=== PATIENT | female | born 1975 | race Caucasian/White ===

== ENCOUNTER 2023-01-29 10:45 | Emergency (ER) | payer OTHER, SELFPAY ==
[2023-01-29 10:59] VITALS: BP 104/79; PULSE 100; RESP 20; TEMP 37.1; O2SAT 94
[2023-01-29 11:00] VITALS: BP 104/79; PULSE 100; RESP 20; TEMP 37.1; O2SAT 94
--- NOTE | 2023-01-29 11:12 | ED.URI ---
HPI - URI/Sore Throat General Chief Complaint: Upper Respiratory Infection Stated Complaint: Sore Throat Source: patient and RN notes reviewed History of Present Illness HPI Narrative: 47 yo F presents to urgent care with complaints of sore throat, low grade fevers, and diarrhea since Monday. Pt denies any vomiting, chest pain, SOB, ear pain, abdominal pain, dysuria, or congestion. 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 Related Data Home Medications Medication Instructions Recorded Confirmed No Home Medications 01/29/23 01/29/23 Allergies Allergy/AdvReac Type Severity Reaction Status Date / Time No Known Allergies Allergy Verified 01/29/23 10:59 Review of Systems Review of Systems: Pertinent positives and pertinent negatives per HPI. PMFSH Comments At the time of my signature, I reviewed and agree with the nursing past medical, surgical, social, and family history. There is no relevant family history pertinent to the patient complaint. Exam Narrative: GENERAL: This is a well-nourished, well-developed patient, in no apparent distress. HEAD: normocephalic, atraumatic. EYES: Sclera clear/white. Vision is grossly intact. EARS: External ears normal, auditory canals clear and without drainage, TMs normal without perforation. Hearing grossly intact. NOSE: External nose normal with no obvious nasal discharge, nares without redness, no rhinorrhea. THROAT: Mucous membranes moist, posterior pharynx erythemic NECK: Neck supple, non-tender without lymphadenopathy, masses or thyromegaly. CARDIOVASCULAR: Regular rate and rhythm without murmurs, gallops, or rubs. RESPIRATORY: Clear to auscultation. Breath sounds equal bilaterally. No wheezes, rales, or rhonchi. SKIN: warm, intact with no suspicious lesions or rash, good texture and turgor. NEURO: awake, alert, and oriented to person, place and time. There were no obvious focal neurologic abnormalities. Course Course Level of Care: Express Care Visit Vital Signs Vital signs: Vital Signs Temperature 98.7 F 01/29/23 10:59 Pulse Rate 100 01/29/23 10:59 Respiratory Rate 20 01/29/23 10:59 Blood Pressure 104/79 01/29/23 10:59 Pulse Oximetry 94 01/29/23 10:59 Oxygen Delivery Room Air 01/29/23 10:59 Temperature 98.7 F 01/29/23 11:00 Pulse Rate 100 01/29/23 11:00 Respiratory Rate 20 01/29/23 11:00 Blood Pressure 104/79 01/29/23 11:00 Pulse Oximetry 94 01/29/23 11:00 Oxygen Delivery Room Air 01/29/23 11:00 Reviewed MDM - URI/Sore Throat MDM Narrative Medical decision making narrative: Viral illness may last between 7-21 days; antibiotics do not cure viral illness and are NOT recommended at this time. Also, recommend symptomatic treatment includes: rest, fluids, and increase humidity of the air at home. Recommend Acetaminophen as directed on the bottle to reduce fever, pain, headache. Please schedule a follow-up visit with your personal physician for further evaluation and treatment within 3-5days. If your symptoms persist, change or worsen significantly before you can contact your personal physician then please, without delay, go to the emergency department for further evaluation. Differential Diagnosis Differential diagnosis: Likely upper respiratory infection, sinusitis, viral infection and pharyngitis Lab Data Attestation: I reviewed the patient's lab results. Labs: Strep Screen Presumptive Negative *(Reference Range: Negative)* Critical Care Time Critical Care Time Critical Care Time: No Discharge Plan Discharge Clinical Impression: Viral infection Patient Disposition: Home, Self-Care Condition: Stable Instructions: Viral Syndrome (ED) Additional Instructions: Viral illness may last between 7-21 days; antibiotics do not cure viral illness and are NOT recommended at this time. Also, recommend symptomati
== END 2023-01-29 11:21 | disposition home or self-care (01) ==
PROVIDERS: Emergency Provider Nurse Practitioner Family
DX: B34.9 Viral infection, unspecified (principal)
CPT/HCPCS: 87081; 87880; 99203; G0463

== ENCOUNTER 2023-03-06 12:45 | Emergency (ER) | payer OTHER, SELFPAY ==
[2023-03-06 12:48] VITALS: BP 125/85; PULSE 114; RESP 20; TEMP 37.7; O2SAT 95
--- NOTE | 2023-03-06 13:46 | ED.URI ---
HPI - URI/Sore Throat General Chief Complaint: Upper Respiratory Infection Stated Complaint: chills/fever Time Seen by Provider: 03/06/23 13:46 Source: patient, RN notes reviewed and old records reviewed Mode of arrival: ambulatory Limitations: no limitations History of Present Illness HPI Narrative: 47 year old female who presents to [facility] care with complaints of diarrhea starting during the night and she was tired last night and she has had chills, body aches,some nausea without vomiting, cough and fevers up to 101.5F today.Patient reports that she took some Tylenol PM for her symptoms. Patient denies any shortness of breath no tachypnea noted or retractions.Patient reports that she had COVID in February 2023. MD elicited complaint: fever, cough and other (nausea and diarrhea, chills, body aches) Onset (ago): day(s) (1) Pain scale (0-10): 7 Treatments prior to arrival: other (Tylenol PM) Related Data Allergies Allergy/AdvReac Type Severity Reaction Status Date / Time No Known Allergies Allergy Verified 03/06/23 13:17 Review of Systems Review of Systems: CONSTITUTIONAL: Reports malaise, chills, sweats, or fever. EYES: Denies visual changes, redness, or discharge. ENT: Reports rhinorrhea, congestion, no sinus pain, no otalgia and no sore throat. CARDIOVASCULAR: Denies chest pain, palpitations, or edema. RESPIRATORY: Reports cough.? Denies dyspnea. GASTROINTESTINAL: Denies abdominal pain, positive for nausea, no vomiting, positive for diarrhea SKIN: Denies rash or itching. MUSCULOSKELETAL: Reports myalgia. NEUROLOGIC: Denies headache. All systems reviewed & are unremarkable except as noted in HPI and below PMFSH Social History Social History (Updated 03/08/23 @ 10:44 by Sharon Howard NP) Smoking status: Current every day smoker Tobacco type: cigarettes Alcohol intake: current Alcohol use details: social Substance use type: does not use Living arrangements: with family Gender identity (if verbalized by the patient): Female Comments At time of signature, agree with nursing past medical, surgical, social and family history. There is no relevant family history pertinent to the presenting complaint Exam Narrative: GENERAL: Ill-appearing, well-nourished, and in no acute distress. HEAD: Normocephalic EYES: PERRLA, conjunctivae clear ENT: Nares clear, turbinates edematous and erythematous, clear discharge. Mucous membranes moist. TM pearly montaño with dull light reflex bilaterally; no tragal tenderness. Oropharynx erythematous without lesions. Tonsils not enlarged and without exudate, no drooling, no hoarseness, no trismus, uvula midline.post nasal discharge NECK: Supple. No lymphadenopathy CHEST: Clear to auscultation, breath sounds equal. No wheezing, rhonchi, rales, or stridor. No respiratory distress, speaks in full sentences.cough noted SAO2 95% on room air HEART: Regular rate and rhythm. No murmur heard. SKIN: Warm, dry, no rash. NEURO: Alert and oriented x3. PSYCH: Normal mood and affect Course Course Emergency Course: Patient is aware of diagnosis, understands and agrees to treatment plan.? Anticipatory guidance given.? Patient agrees to follow-up as directed and is aware of reasons to seek care at the emergency department. Portions of this record may have been created with voice recognition software Level of Care: Express Care Visit Vital Signs Vital signs: Vital Signs Temperature 37.7 C H 03/06/23 12:48 Pulse Rate 114 H 03/06/23 12:48 Respiratory Rate 03/06/23 12:48 Blood Pressure 125/85 03/06/23 12:48 Pulse Oximetry 03/06/23 12:48 Oxygen Delivery Room Air 03/06/23 12:48 Temperature 37.7 C H 03/06/23 12:48 Pulse Rate 114 H 03/06/23 12:48 Respiratory Rate 03/06/23 12:48 Blood Pressure 125/85 03/06/23 12:48 Pulse Oximetry 03/06/23 12:48 Oxygen Delivery Room Air 03/06/23 12:48 reviewed MDM - U
== END 2023-03-06 14:05 | disposition home or self-care (01) ==
PROVIDERS: Emergency Provider Registered Nurse
DX: J10.1 Influenza due to other identified influenza virus with other respiratory manifestations (principal); F17.210 Nicotine dependence, cigarettes, uncomplicated; Z86.16 Personal history of COVID-19
CPT/HCPCS: 87804; 99213; G0463

== ENCOUNTER 2024-01-05 15:54 | Emergency (ER) | payer OTHER, SELFPAY ==
[2024-01-05 15:58] VITALS: BP 113/85; PULSE 91; RESP 18; TEMP 37.2; O2SAT 97
--- NOTE | 2024-01-05 16:00 | ED.URI ---
HPI - URI/Sore Throat General Chief Complaint: Upper Respiratory Infection Stated Complaint: Runny Nose/Congestion Time Seen by Provider: 01/05/24 16:23 Source: patient and RN notes reviewed Mode of arrival: ambulatory Limitations: no limitations History of Present Illness HPI Narrative: 48-year-old female presents with concern for sore throat, runny nose, stuffy nose, cough, pain behind her ear. She reports symptoms started on Monday with diarrhea and then upper respiratory is symptoms started later. She denies fever, body aches, chills, sweats MD elicited complaint: sore throat and nasal congestion Related Data Allergies Allergy/AdvReac Type Severity Reaction Status Date / Time No Known Allergies Allergy Verified 03/06/23 13:17 Review of Systems Review of Systems: CONSTITUTIONAL: Denies malaise, chills, sweats, or fever. EYES: Denies visual changes, redness, or discharge. ENT: Reports rhinorrhea, congestion, otalgia and sore throat. CARDIOVASCULAR: Denies chest pain, palpitations, or edema. RESPIRATORY: Reports cough. Denies dyspnea. GASTROINTESTINAL: Denies abdominal pain, nausea, vomiting, diarrhea SKIN: Denies rash or itching. MUSCULOSKELETAL: Denies myalgia. NEUROLOGIC: Denies headache. All systems reviewed & are unremarkable except as noted in HPI and below PMFSH Social History Social History (Updated 03/08/23 @ 10:44 by Sharon Howard NP) Smoking status: Current every day smoker Tobacco type: cigarettes Alcohol intake: current Alcohol use details: social Substance use type: does not use Living arrangements: with family Gender identity (if verbalized by the patient): Female Comments At time of signature, agree with nursing past medical, surgical, social and family history. There is no relevant family history pertinent to the presenting complaint Exam Narrative: GENERAL: Well-appearing, well-nourished, and in no acute distress. HEAD: Normocephalic EYES: PERRLA, conjunctivae clear ENT: Nares clear, clear discharge. Mucous membranes moist. TM pearly montaño with dull light reflex bilaterally; no tragal tenderness. Oropharynx erythematous without lesions. Tonsils not enlarged and without exudate, no drooling, no hoarseness, no trismus, uvula midline. NECK: Supple. No lymphadenopathy CHEST: Clear to auscultation, breath sounds equal. No wheezing, rhonchi, rales, or stridor. No respiratory distress, speaks in full sentences. HEART: Regular rate and rhythm. No murmur heard. SKIN: Warm, dry, no rash. NEURO: Alert and oriented x3. PSYCH: Normal mood and affect Course Course Emergency Course: Patient is aware of diagnosis, understands and agrees to treatment plan. Anticipatory guidance given. Patient agrees to follow-up as directed and is aware of reasons to seek care at the emergency department. Portions of this record may have been created with voice recognition software Level of Care: Express Care Visit Vital Signs Vital signs: Reviewed. MDM - URI/Sore Throat MDM Narrative Medical decision making narrative: Differential diagnosis considered: Gifford virus, strep pharyngitis, allergic rhinitis, upper respiratory tract infection, sinusitis, rhinosinusitis, nasopharyngitis. viral pharyngitis, otitis media, otitis externa, pneumonia, bronchitis, viral cough syndrome, viral syndrome, and influenza. Exam findings show no acute concerns or changes; patient is non-toxic appearing and is in no distress. Patient is appropriate for outpatient treatment and follow-up. Lab Data Attestation: I reviewed the patient's lab results. Critical Care Time Critical Care Time Critical Care Time: No Discharge Plan Discharge Clinical Impression: Upper respiratory infection Patient Disposition: Home, Self-Care Condition: Stable Instructions: Upper Respiratory Infection (ED) Additional Instructions: Your rapid strep swab was negative today at [facility]. A throat culture will be sent to the laboratory for further testing. If the test is positive, you will receive a phone call within 48 hours and an appropriate antibiotic will be initiated at that time. Your symptoms are likely due to a viral illness, which is not treated with antibiotics. Viral symptoms can be present for up to a few weeks. -Alternate Tylenol and Motrin per package directions for fever or pain. -Antihistamine medication such as Benadryl at night and Zyrtec during the day can help improve symptoms. -Eat and drink things that are easy to swallow, like tea or soup, or popsicles to suck on. -Oral rinses such as: Salt water gargles and/or may use topical anesthetic (eg. Chloraseptic spray) or lozenges to relieve dryness or throat pain). -Frequent hand washing or hand wind plant manager is one of the best ways to prevent spread of infection. -Follow up with primary care provider in 2-3 days if condition is not improving; or seek ER visit if you have trouble breathing, cannot drink enough fluids, have muffled voice, difficulty opening your mouth, or severe swelling. Prescriptions: New pseudoephedrine HCl [12 Hour Decongestant] 120 mg tablet extended release 120 mg PO Q12H PRN (Reason: nasal congestion) Qty: 20 0RF fluticasone propionate [Flonase Allergy Relief] 50 mcg/actuation spray,suspension 2 spray NASAL DAILY 14 Days Qty: 15.8 0RF Rx Instructions: administer into each nostril Follow-up/Referrals: Mirlande Jacome, RN [Primary Care Provider] - Stand Alone Forms: Work/School Release IP Time of Disposition: 16:37
[2024-01-05 16:02] VITALS: BP 113/85; PULSE 91; RESP 18; TEMP 37.2; O2SAT 97
[2024-01-05 16:32] LABS: EDSTREPNEGPOS1 Negative (Negative)
== END 2024-01-05 16:43 | disposition home or self-care (01) ==
PROVIDERS: Emergency Provider Nurse Practitioner
DX: J06.9 Acute upper respiratory infection, unspecified (principal); F17.210 Nicotine dependence, cigarettes, uncomplicated
CPT/HCPCS: 87081; 87880; 99213; G0463

== ENCOUNTER 2024-07-23 12:24 | Emergency (ER) | payer OTHER, SELFPAY ==
--- OUTSIDE RECORDS SUMMARY | 2024-07-23 12:26 | XMS_ITS ---
Author Organization [facility] Address [address] [place] [address] Phone Care Team Providers Care Md Allergy Immunology Name Role Phone Unavailable Primary Care Provider [facility] Status:Enrolled (Active) Start date:04/03/2024 Enrollment date:04/03/2024 Related social drivers of health:Intimate Partner Violence, Social Connections, Alcohol Use, Tobacco Use, Financial Resource Strain,Stress, Physical Activity, Food Insecurity, Transportation Needs, Housing Stability, Utilities Continued Care and Services Coordination
--- OUTSIDE RECORDS SUMMARY | 2024-07-23 12:26 | XMS_ITS | Clinical Summary ---
Author Organization [facility] Address [address] [place] [address] Phone Care Team Providers Care Flagstone Layer Name Role Phone Unavailable Primary Care Provider Unavailabl e Allergies No known active allergies Medications valACYclovir (VALTREX) 500 MG TabletIndicatio ns:HSV-2 (herpes simplex virus 2) infection Take 1 Tablet by mouth daily. 90 Tablet 3 1 Active Additional Information Patient not taking.Reported on 03/08/2024 Active Problems No known active problems Immunizations Immunization Administration Dates Next Due Pneumococcal Vaccine Adult - 23 Valent 1 Pneumococcal conjugate PCV20 , polysaccharide GBL610 conjugate, adjuvant, PF 01/12/2022 TDAP Vaccine 12/12/2021 Family History Medical History Relation Name Comments No Known Problems Daughter 1 ADD / ADHD Daughter 2 Diabetes Father Heart Attack Father Heart Disease Father Heart Surgery Father Colon Cancer Maternal Grandmother Hypertension Mother No Known Problems Son Relation Name Status Comments Daughter 1 Alive Daughter 2 Alive Father Alive Maternal Grandmother Mother Alive Son Alive Social History Tobacco Use Types Packs/Day Years Used Date Smoking Tobacco: Every Day Cigarettes 0.5 32.4 Started: 03/06/1992 Smokeless Tobacco: Never Tobacco Cessation:Ready to Q uit: Not Asked; Counseling Given: Not Answered Alcohol Use Standard Drinks/Week Comments Yes 0 (1 standard drink = 0.6 oz pur e alcohol) Occasionally PHQ-2 Answer Date Recorded Total Score - Questions 1-9 0 /0 09/2020 Education Answer Date Recorded What is the highest level of school you have completed or the highest degree you have received? 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 Not on file Not on file Last Filed Vital Signs Vital Sign Reading Time Taken Comments Blood Pressure 102/60 03/08/2024 12:00 PM LOADER ENGINEER Pulse 91 03/08/2024 12:00 PM LOADER ENGINEER Temperature 37.2 C (98.9 F) 03/08/2024 12:00 PM LOADER ENGINEER Respiratory Rate 16 03/08/2024 12:00 PM LOADER ENGINEER Oxygen Saturation 96% 03/08/2024 12:00 PM LOADER ENGINEER Inhaled Oxygen Concentration - - Weight 64.9 kg (143 lb) 05/11/2022 9:01 AM LOADER ENGINEER Height 157.5 cm (5' 2 ) 05/11/2022 9:01 AM LOADER ENGINEER Body Mass Index 26.16 05/11/2022 9:01 AM LOADER ENGINEER Plan of Treatment Health Maintenance Due Date Last Done Comments Hepatitis C Virus (HCV) Screening 1977 Hepatitis B Immunization (1 of 3 - 19+ 3-dose series) 1996 Colonoscopy 2022 Colorectal Cancer Screening 2022 Mammogram 01/17/2023 01/17/2022, 08/24/2020 Influenza Immunization (#1) 2023 SARS-COV-2 Immunization ( season) 2023 10/16/2020 Pap Smear 01/28/2025 01/28/2022, 12/03/2018 Cervical Cancer Screening (CCS) 03/02/2027 HPV/Cotest 03/02/2027 03/02/2022 Td Immunization Every 10 Yea rs (Adults With 1 Tdap) 12/13/2031 12/12/2021 Respiratory Syncytial Virus (RSV) Immunization (Adult) (1 - 1-dose 75+ series) 2052 Pneumococcal Immunization Combined Completed 01/12/2022, 08/10/2020 Discussion re Starting/Frequency of Mammograms Completed 01/17/2022, 08/24/2020 Meningococcal Immunization (ACWY) Aged Out No longer eligible b ased on patient's age to complete this topic Rotavirus Immunization Aged Out No lo nger eligible based on patient's age to complete this topic Procedures Procedure Name Priority Date/Time Associated Diagnosis Comments HUMAN PAPILLOMA VIRUS (HPV) Routine 03/02/2022 8:33 AM LOADER ENGINEER Encounter for well woman exam with routine gynecological exam PATHOLOGY CYTOLOGY BINDER SORTER Routine 01/28/2022 5:08 PM LOADER ENGINEER Encounter for well woman exam with routine gynecological exam KATERIN SCREENING BILATERAL DIGITAL W CAD W TIGRE Routine 01/17/2022 3:30 PM LOADER ENGINEER Encounter for screening for malignant neoplasm of breast, unspecified screening modality from Last 3 Months or Most Recently Relevant to Health Maintenance Results * (ABNORMAL) HUMAN PAPILLOMA VIRUS (HPV) (03/02/2022 8:33 AM LOADER ENGINEER) HPV OTHER HIGH RISK TYPES, PCR POSITIVE(A) NEGATIVE 03/04/2022 2:46 PM LOADER ENGINEER [facility] Comment: Positive for one or more of the following Other High HPV types: 31, 33, 35, 39, 45, 51, 52, 56, 58, 59, 66, and 68. False-positive results have been reported with molecular assays. If these positive results are discordant with clinical/cytohistologic findings, repeat testing may be considered after an appropriate interval. HPV TYPE 16 NEGATIVE NEGATIVE 03/04/2022 2:46 PM LOADER ENGINEER [facility] Comment: A negative high-risk HPV result does not exclude the possibility of future cytologic HSIL or underlying CIN2-3 or cancer. The presence of PCR inhibitors may cause false negative or invalid results. If concentrations of whole blood in the sample exceed 1.5% (dark red or brown coloration) in PreservCyt solution, there is a likelihood of obtaining a false-negative result. HPV TYPE 18 NEGATIVE NEGATIVE 03/04/2022 2:46 PM LOADER ENGINEER [facility] Comment: A negative high-risk HPV result does not exclude the possibility of future cytologic HSIL or underlying CIN2-3 or cancer. The presence of PCR inhibitors may cause false negative or invalid results. If concentrations of whole blood in the sample exceed 1.5% (dark red or brown coloration) in PreservCyt solution, there is a likelihood of obtaining a false-negative result. HPV ORDER BE USED FOR SCREENING OR DIAGNOSTIC SCREENING 03/04/2022 2:46 PM LOADER ENGINEER [facility] Other Non-Phlebotomy Collection / Unknown 03/02/2022 8:33 AM LOADER ENGINEER 03/02/2022 8:33 AM LOADER ENGINEER Narrative [facility] - 03/04/2022 2:46 PM LOADER ENGINEER Performed by Real-Time Polymerase Chain Reaction (PCR) on the Jerome Judd 4800. This assay has been validated for use with post-aliquot samples from the [employer] T5000 processor. us Mirlande Jacome APRN, CNP LAB SEND OUTS Final Re sult [facility] [address] [id number], [place] * PATHOLOGY CYTOLOGY BINDER SORTER (01/28/2022 5:08 PM LOADER ENGINEER) SPECIMEN ADEQUACY Satisfactory for evaluation. Endocervical/trans formation zone component is present. 02/08/2022 10:44 AM LOADER ENGINEER [facility] GENERAL CATEGORY EPITHELIAL CELL ABNORMALITY. 02/08/2022 10:44 AM [facility] DESCRIPTIVE DIAGNOSIS ASCUS: Atypical squamous cells of undetermined significance. 02/08/2022 10:44 AM [facility] at [address]44 LOADER ENGINEER OTHER FINDINGS Predominance of coccobacilli present consistent with shift in vaginal jackie. 02/08/2022 10:44 AM LOADER ENGINEER [facility] RECOMMENDATION 02/08/2022 10:44 AM [facility] Comment:Clinical correlation and follow-up studies if warranted advised. HPV Reflex if ASCUS? Yes 02/08/2022 10:44 AM [facility] Automated Examination This sample was not evaluated by the automated imaging and review system (M[employer]etrixprep Imaging System, [employer], [place], [place]) due to technical and/or biologic factor(s). The case was screened, reviewed, and finalized by a data entry email processor and/or pathologist. 02/08/2022 10:44 AM LOADER ENGINEER [facility] Disclaimer The PAP smear is a screening test designed to detect cancerous or precancerous cells of the uterine cervix. It is one of the best means available for detection of cervical cancer but still carries an inherent false-negative rate. The consequences of a false-negative PAP result can be minimized by adhering to current screening guidelines. The following are general guidelines recommended by the ACS, ASCP, ASCCP, and ACOG: PAP testing is recommended every three years for women 21-29, Co-Testing , a PAP test in conjunction with an HPV (Human Papillomavirus) test for women ages 30-65, and no PAP or HPV testing for women under the age of 21 or older than 65 unless clinically indicated. 02/08/2022 10:44 AM LOADER ENGINEER [facility] Other CERVIX UTERI STRUCTURE / Unknown Non-Phlebotomy Collection / Unknown 01/28/2022 5:08 PM LOADER ENGINEER 01/28/2022 5:08 PM LOADER ENGINEER us Mirlande Jacome APRN, JUANA PATHOLOGY/CYTOLOGY ORDER MARGARITO Final Result [facility] [address] [place] [address], * KATERIN SCREENING BILATERAL DIGITAL W CAD W TIGRE (01/17/2022 3:30 PM LOADER ENGINEER) Anatomical Region Laterality Modality breast Bilateral Mammography 01/17/2022 3:11 PM LOADER ENGINEER Narrative 01/18/2022 8:47 AM LOADER ENGINEER - KATERIN SCREENING BILATERAL DIGITAL W CAD W TIGRE BILATERAL DIGITAL SCREENING MAMMOGRAM 3D/2D WITH CAD WITH MEDIOLATERAL OBLIQUE CRANIOCAUDAL: 01/17/2022 The study was acquired using digital technology and interpreted from soft copy. Current study was also evaluated with ICAD version 7.2. 2D digital mammographic views, as well as 3D digital tomosynthesis were performed in the CC and MLO projections. CLINICAL: Routine screening. Patient has no complaints. No personal history of cancer. No family history of breast cancer. *see notes*. COMPARISONS: Comparison is made to exam dated: 08/24/2020 [facility]. BREAST TISSUE:The tissue of both breasts is extremely dense, which lowers the sensitivity of mammography. FINDINGS: There are benign calcifications in both breasts. No significant masses, calcifications, or other findings are seen in either breast. There has been no significant interval change. IMPRESSION: BI-RAD 2 BENIGN There is no mammographic evidence of malignancy. A 1 year screening mammogram is recommended. A letter will be sent to the patient with these results. The patient will be entered into a reminder system with a target due date of 1 year for her next screening exam. Electronically signed by: Janet skinner/penrad:01/17/2022 18:28:56 Radiologist Physician(s): RT Jacob(R)(M), [facility] letter sent: Normal Exam Reading location: [facility] BI-RADS: 2 Benign Procedure Note Janet Martinez MD - 01/18/2022 - KATERIN SCREENING BILATERAL DIGITAL W CAD W TIGRE BILATERAL DIGITAL SCREENING MAMMOGRAM 3D/2D WITH CAD WITH MEDIOLATERAL OBLIQUE CRANIOCAUDAL: 01/17/2022 The study was acquired using digital technology and interpreted from soft copy. Current study was also evaluated with ICAD version 7.2. 2D digital mammographic views, as well as 3D digital tomosynthesis were performed in the CC and MLO projections. CLINICAL: Routine screening. Patient has no complaints. No personal history of cancer. No family history of breast cancer. *see notes*. COMPARISONS: Comparison is made to exam dated: 08/24/2020 [facility]. BREAST TISSUE:The tissue of both breasts is extremely dense, which lowers the sensitivity of mammography. FINDINGS: There are benign calcifications in both breasts. No significant masses, calcifications, or other findings are seen in either breast. There has been no significant interval change. IMPRESSION: BI-RAD 2 BENIGN There is no mammographic evidence of malignancy. A 1 year screening mammogram is recommended. A letter will be sent to the patient with these results. The patient will be entered into a reminder system with a target due date of 1 year for her next screening exam. Electronically signed by: Janet skinner/penrad:01/17/2022 18:28:56 Radiologist Physician(s): RT Jacob(R)(M), [facility] letter sent: Normal Exam Reading location: [facility] BI-RADS: 2 Benign us Mirlande Jacome ANIMATION CAMERA OPERATOR, EXPERIMENTAL AIRCRAFT MECHANIC IMG MAMMO ORDERABLES Fin al Result from Last 3 Months or Most Recently Relevant to Health Maintenance Insurance MEDICAID [place]
--- OUTSIDE RECORDS SUMMARY | 2024-07-23 12:26 | XMS_ITS | Encounter Summary ---
Author Organization [facility] Address [address] [place] [address] Care Team Providers Care Child Development Director Name Role Phone Unavailable Primary Care Provider Unavailabl e Encounter Details Date Type Department Care Team (Late st Contact Info) Description 09/18/2019 Lab Requisition [facility] [address] [place] [address] Regis Esteves MD Social History Tobacco Use Types Packs/Day Years Used Date Smoking Tobacco: Every Day Smokeless Tobacco: Never Comments No Sex and Gender Information Value Date Recorded Sex Assigned at Not on file Legal Sex Female 9:56 AM FISH BAIT PROCESSING SUPERVISOR Gender Identity Not on file Sexual Orientation Not on file documented as of this encounter Plan of Treatment Not on file documented as of this encounter Procedures Procedure Name Priority Date/Time Associated Diagnosis Comments SARS-COV-2 (COVID-19) IN HOUSE Routine 09/17/2019 11:45 AM CDT documented in this encounter Results * SARS-COV-2 (COVID-19) IN HOUSE (09/17/2019 11:45 AM CDT) COVID-19 PCR Not detected Not detected, Invalid 09/18/2019 11:06 PM CDT [facility] Microbiology SPECIMEN FROM NASOPHARYNGEAL STRUCTURE / Unknown Collection / Unknown 09/17/2019 11:45 AM CDT 09/18/2019 10:26 AM CDT Narrative [facility] - 09/18/2019 11:06 PM CDT This nucleic acid amplification assay performance was validated by [facility]. This test has been authorized by the Food and Drug administration (FDA)under an Emergency Use Authorization (EUA). This test has been validated in accordance with the FDA's guidance document Policy for Diagnostic Testing in Laboratories Certified to perform High Complexity Testing under CLIA prior to Emergency Use Authorization for Coronavirus Disease-2019 during the Public Health Emergency issued on May 04, 2019. FDA independent review of this validation is pending. This test is only authorized for the duration of time the declaration that circumstances exist justifying the authorization of emergency use of in vitro diagnostic tests for detection of SARS-CoV-2 virus and/or diagnosis of COVID-19 infection under section 564(b)(1) of the Act, 21 U.S.C 360bbb-3 (b)(1), unless the authorization is terminated or revoked sooner. us Regis Esteves MD LAB - MICROBIOLOGY ORDERABL ES Final Result [facility] [address] [place] [address], [facility] [phone] documented in this encounter Visit Diagnoses Not on filedocumented in this encounter Additional Health Concerns Infection Onset Date Last Indicated Resolved Time COVID-19 Under Investigation 09/18/2019 09/17/2019 09/18/2019 11:06 PM CDT documented as of this encounter
--- OUTSIDE RECORDS SUMMARY | 2024-07-23 12:26 | XMS_ITS | Clinical Summary ---
Author Organization [facility] Address [address] [place] [address] Care Team Providers Care Nuclear Design Engineer Name Role Phone Unavailable Primary Care Provider Unavailabl e Source Comments [facility],non-owned Affiliates and Associated Physician Practices is amultiple site organization consisting of ambulatory clinics and hospital sitesin [place], [place], [place] and [place]. This disclosure is being madepursuant to the Care Everywhere program and may not contain all information available regarding this patient. Last updated 17.[facility] Allergies No known active allergies Medications * Be aware that medications may not be up to date on this document. Alwaysverify current medications with the patient. No known medications Social History Tobacco Use Types Packs/Day Years Used Date Smoking Tobacco: Every Day Smokeless Tobacco: Never Tobacco Cessation:Ready to Q uit: No; Counseling Given: Yes Comments No Sex and Gender Information Value Date Recorded Sex Assigned at Not on file Legal Sex Female 9:56 AM PLANNING ADVISOR Gender Identity Not on file Sexual Orientation Not on file Last Filed Vital Signs Vital Sign Reading Time Taken Comments Blood Pressure 110/68 05/09/2018 5:13 PM PLANNING ADVISOR Pulse 80 05/09/2018 5:13 PM PLANNING ADVISOR Temperature 36.8 C (98.3 F) 05/09/2018 5:13 PM PLANNING ADVISOR Respiratory Rate - - Oxygen Saturation 97% 05/09/2018 5:13 PM PLANNING ADVISOR Inhaled Oxygen Concentration - - Weight 54.4 kg (120 lb) 05/09/2018 5:13 PM PLANNING ADVISOR Height 157.5 cm (5' 2 ) 05/09/2018 5:13 PM PLANNING ADVISOR Body Mass Index 21.95 05/09/2018 5:13 PM PLANNING ADVISOR Plan of Treatment Health Maintenance Due Date Last Done Comments COLOGUARD (AGES 45-75) - COL ON CA SCREENING 1977 COLON MONITORING 1977 COLONOSCOPY - COLON CA SCREENING 1977 CT COLONOGRAPHY - COLON CA SCREENING 1977 Colorectal Cancer Screening 1977 FIT - COLON CA SCREENING 1977 FLEX SIG - COLON CA SCREENING 1977 LIPID TESTING 1977 MAMMOGRAM 1977 HIV SCREENING 1992 HEPATITIS C SCREENING 04/29/1995 DTAP/TDAP/TD VACCINES (1 - Tdap) 1996 HEPATITIS B VACCINE (1 of 3 - 19+ 3-dose series) 1996 COVID-19 VACCINE (1 - 2023-2 5 season) 2023 DEPRESSION SCREENING 03/06/2024 INFLUENZA VACCINE (Season Ended) 2024 ZOSTER VACCINE (1 of 2) 2027 HIB VACCINE Aged Out No longer eligi ble based on patient's age to complete this topic HPV VACCINE Aged Out No longer eligi ble based on patient's age to complete this topic MENINGOCOCCAL (Group B) VACC INE SHARED DECISION-MAKING Aged Out No longer eligibl e based on patient's age to complete this topic MENINGOCOCCAL GROUPS A/C/Y/W VACCINE Aged Out No longer eligible b ased on patient's age to complete this topic PNEUMOCOCCAL VACCINE Aged Out No long er eligible based on patient's age to complete this topic Insurance [facility]
[2024-07-23 12:28] VITALS: BP 119/76; PULSE 85; RESP 16; TEMP 37.3; O2SAT 98
[2024-07-23 12:43] LABS: EDSTREPNEGPOS1 Negative (Negative)
--- NOTE | 2024-07-23 12:56 | ED_ITS ---
HPI - General Adult General Chief complaint: Upper Respiratory Infection Stated complaint: sore throat Source: patient Mode of arrival: ambulatory Limitations: no limitations History of Present Illness HPI narrative: Pt presents for evaluation of sore throat. She initially had a scratchy throat over the weekend but her throat became more sore yesterday. She also has an occasional cough and mild nausea. No fever, chills, vomiting or diarrhea. She is not taking any medications for her symptoms. 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 Related Data Allergies Allergy/AdvReac Type Severity Reaction Status Date / Time No Known Allergies Allergy Verified 07/23/24 12:31 Review of Systems Review of Systems: CONSTITUTIONAL: Denies fever, chills, or sweats. EYES: Denies visual changes, redness, or discharge. ENT: Reports sore throat. Denies rhinorrhea, congestion, or otalgia. CARDIOVASCULAR: Denies chest pain, palpitations, or edema. RESPIRATORY: Reports cough. Denies dyspnea. GASTROINTESTINAL: Reports nausea. Denies abdominal pain, vomiting, or diarrhea. GENITOURINARY: Denies dysuria or hematuria. SKIN: Denies rash or itching. MUSCULOSKELETAL: Denies back pain, joint pain, or myalgia. NEUROLOGIC: Denies headache, numbness, dizziness, or weakness. PSYCHIATRIC: Denies anxiety or depression. PMFSH Past Medical History Medical History No pertinent past medical history Surgical History Surgical History (Updated 07/23/24 @ 13:00 by Vicente Hester, SHERIFF'S DETECTIVE, ) No pertinent past surgical history Family History Family History Mother Family history non-contributory Social History Social History Smoking packs per day: 0.5 Smoking cigarettes per day: 10.0 Smoking status: Current every day smoker Tobacco type: cigarettes Alcohol intake: current Alcohol use details: social Substance use: current Substance use type: marijuana Living arrangements: with family Gender identity (if verbalized by the patient): Female Exam Narrative: GENERAL: Well-appearing, well-nourished, and in no acute distress. HEAD: Normocephalic, atraumatic. EYES: PERRLA and EOMI. ENT: Nares clear, no rhinorrhea or epistaxis. Mucous membranes moist. Bilateral tonsillar enlargement with erythema and white exudate. Uvula is midline. Bilateral TMs pearly montaño nonbulging NECK: Supple. No adenopathy or masses. No carotid bruits or JVD CHEST: Clear to auscultation. No respiratory distress. No wheezes rales or rhonchi HEART: Regular rate and rhythm. No murmur heard. Normal peripheral pulses. ABDOMEN: Soft, nontender, nondistended, normal active bowel sounds. EXTREMITIES: Normal range of motion. No edema. SKIN: Warm, dry, no rash. NEURO: No focal deficits. Alert and oriented x3. PSYCH: Normal mood and affect. Course Course Emergency Course: This is a 49-year-old female who presented for evaluation of a sore throat. Rapid strep negative. Will send throat culture. Patient requested antibiotics in the event that her test was a false negative. Will DC with amoxicillin. Follow-up with primary provider. Go to the ER for worsening symptoms. Patient in agreement with plan of care. Level of Care: Express Care Visit Vital Signs Vital signs: Vital Signs Temperature 37.3 C 07/23/24 12:28 Pulse Rate 85 07/23/24 12:28 Respiratory Rate 16 07/23/24 12:28 Blood Pressure 119/76 07/23/24 12:28 Pulse Oximetry 98 07/23/24 12:28 Oxygen Delivery Room Air 07/23/24 12:28 Temperature 37.3 C 07/23/24 12:28 Pulse Rate 85 07/23/24 12:28 Respiratory Rate 16 07/23/24 12:28 Blood Pressure 119/76 07/23/24 12:28 Pulse Oximetry 98 07/23/24 12:28 Oxygen Delivery Room Air 07/23/24 12:28 Medical Decision Making Vital Signs Vital Signs: Vital Signs Temperature 37.3 C 07/23/24 12:28 Pulse Rate 85 07/23/24 12:28 Respiratory Rate 16 07/23/24 12:28 Blood Pressure 119/76 07/23/24 12:28 Pulse Oximetry 98 07/23/24 12:28 Oxygen Delivery Room Air 07/23/24 12:28 Temperature 37.3 C 07/23/24 12:28 Pulse Rate 85 07/23/24 12:28 Respiratory Rate 16 07/23/24 12:28 Blood Pressure 119/76 07/23/24 12:28 Pulse Oximetry 98 07/23/24 12:28 Oxygen Delivery Room Air 07/23/24 12:28 Lab Data Labs: Lab Results 07/23/24 Range/Units 12:30 POC Grp A Strep Screen Negative (Negative) Discharge Plan Discharge Clinical Impression: Strep throat Patient Disposition: Home Condition: Stable Instructions: Antibiotic Form, Strep Throat (ED) Patient Language: Irish Prescriptions: New amoxicillin 500 mg tablet 500 mg PO Q12H Qty: 20 0RF Follow-up/Referrals: Mirlande Jacome RN [Primary Care Provider] - Stand Alone Forms: Work/School Release IP Time of Disposition: 12:56
== END 2024-07-23 13:00 | disposition home or self-care (01) ==
PROVIDERS: Emergency Provider Nurse Practitioner
DX: J02.0 Streptococcal pharyngitis (principal); F17.210 Nicotine dependence, cigarettes, uncomplicated; F12.90 Cannabis use, unspecified, uncomplicated
CPT/HCPCS: 87081; 87880; 99213; G0463

== ENCOUNTER 2024-12-09 14:36 | Emergency (ER) | payer OTHER, SELFPAY ==
[2024-12-09 14:42] VITALS: BP 114/71; PULSE 85; RESP 16; TEMP 36.7; O2SAT 96
--- NOTE | 2024-12-09 15:11 | ED.LOWEXIN ---
HPI - Extremity Injury (Lower) General Chief Complaint: Extremity Injury, Lower Stated Complaint: heel of left foot pain Time Seen by Provider: 12/09/24 15:03 Source: patient and RN notes reviewed Mode of arrival: ambulatory Limitations: no limitations History of Present Illness HPI Narrative: 49-year-old female patient presents today with pain to her left heel x2 weeks that has been worsening since onset with weight-bearing. Denies injury or trauma. Denies numbness or tingling. Currently rates her pain 6/10 has been taking Tylenol p.m. with some improvement. Related Data Allergies Allergy/AdvReac Type Severity Reaction Status Date / Time No Known Allergies Allergy Verified 12/09/24 14:41 REPLACED BY [facility] Past Medical History Medical History No pertinent past medical history Surgical History Surgical History No pertinent past surgical history Family History Family History Mother Family history non-contributory Social History Social History Smoking packs per day: 0.5 Smoking cigarettes per day: 10.0 Smoking status: Current every day smoker Tobacco type: cigarettes Alcohol intake: current Alcohol use details: social Substance use: current Substance use type: marijuana Living arrangements: with family Gender identity (if verbalized by the patient): Female Comments At time of signature, I have reviewed and agree with nursing past medical, surgical, social and family history unless otherwise noted. Please see nursing chart for further information. There is no relevant family history pertinent to the presenting complaint Exam Narrative: GENERAL: Well-appearing, well-nourished, and in no acute distress. HEAD: Normocephalic, atraumatic. EYES: EOMI. No redness or drainage. Conjunctivae normal. ENT: Mucous membranes pink and moist. NECK: Normal AROM. CHEST: No respiratory distress. EXTREMITIES: Left foot: Tenderness to the left heel extending slightly into the arch. No edema, erythema, ecchymosis. Distal sensation intact. Capillary refill normal. Pedal pulse normal. Full range of motion of the ankle and toes. SKIN: Warm, dry, no rash. Capillary refill normal. Normal skin turgor. NEURO: No focal deficits. Alert and oriented x3. Gait steady. PSYCH: Normal affect. No signs of depression or anxiety. Course Course Level of Care: Express Care Visit Vital Signs Vital signs: Vital Signs Temperature 98.0 F 12/09/24 14:42 Pulse Rate 85 12/09/24 14:42 Respiratory Rate 16 12/09/24 14:42 Blood Pressure 114/71 12/09/24 14:42 Pulse Oximetry 96 12/09/24 14:42 Oxygen Delivery Room Air 12/09/24 14:42 Temperature 98.0 F 12/09/24 14:42 Pulse Rate 85 12/09/24 14:42 Respiratory Rate 16 12/09/24 14:42 Blood Pressure 114/71 12/09/24 14:42 Pulse Oximetry 96 12/09/24 14:42 Oxygen Delivery Room Air 12/09/24 14:42 Reviewed MDM - Extremity Injury (Lower) MDM Narrative Medical decision making narrative: 49-year-old female patient presents today with pain to her left heel x2 weeks that has been worsening since onset with weight-bearing. Tylenol with some improvement. Upon exam, patient has tenderness to the left heel extending somewhat into the arch without abnormality to the foot, consistent with plantar fasciitis. Will treat with a Medrol Dosepak. Recommend podiatry follow-up in 1-2 weeks if symptoms do not improve, or if the improve then return. Also recommend ice and gel heel cups in the shoes. Patient agrees with plan. Vital signs stable. Anticipatory guidance given. Differential Diagnosis Differential diagnosis: Likely other (Bone spur, osteoarthritis, plantar fasciitis) Critical Care Time Critical Care Time Critical Care Time: No Discharge Plan Discharge Clinical Impression: Plantar fasciitis of left foot Patient Disposition: Home Condition: Stable Instructions: Plantar Fasciitis (ED), Plantar Fasciitis Exercises (ED) Additional Instructions: Please take the Medrol Dosepak as directed. Continue Tylenol for pain if needed. Follow-up with podiatry and 1-2 weeks if symptoms do not improve. Patient Language: Palauan Prescriptions: New methylprednisolone [Medrol (Neil)] 4 mg tablets,dose pack See Rx Instructions .ROUTE .COMPLEX Qty: 21 0RF Rx Instructions: orally per package directions Follow-up/Referrals: Mirlande Jacome, RN [Primary Care Provider, Nursing] Time of Disposition: 15:16
--- OUTSIDE RECORDS SUMMARY | 2024-12-09 15:19 | XMS_ITS | Clinical Summary ---
Author Organization [facility] Address [address] [place] [address] Phone Care Team Providers Care Infectious Disease Physician Name Role Phone Unavailable Primary Care Provider [...] Valent 1 Pneumococcal conjugate PCV20 , polysaccharide [id number] conjugate, adjuvant, PF 01/12/2022 TDAP Vaccine 12/12/2021 [...] Date Smoking Tobacco: Every Day Cigarettes 0.5 32.8 Started: 03/06/1992 Smokeless Tobacco: Never Tobacco Cessation:Ready to Q uit: Not Asked; Counseling Given: Not Answered Alcohol Use Standard Drinks/Week Comments Yes 0 (1 standard drink = 0.6 oz pur e alcohol) Occasionally PHQ-2 Answer Date Recorded Total Score - Questions 1-9 0 0 09/2020 Education Answer Date Recorded What is [...] 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 Not on file Not on file Last Filed Vital Signs Vital Sign Reading Time Taken Comments Blood Pressure 102/60 03/08/2024 12:00 PM ANESTHESIOLOGIST PHYSICIAN Pulse 91 03/08/2024 12:00 PM ANESTHESIOLOGIST PHYSICIAN Temperature 37.2 C (98.9 F) 03/08/2024 12:00 PM ANESTHESIOLOGIST PHYSICIAN Respiratory Rate 16 03/08/2024 12:00 PM ANESTHESIOLOGIST PHYSICIAN Oxygen Saturation 96% 03/08/2024 12:00 PM ANESTHESIOLOGIST PHYSICIAN Inhaled Oxygen Concentration - - Weight 64.9 kg (143 lb) 05/11/2022 9:01 AM ANESTHESIOLOGIST PHYSICIAN Height 157.5 cm (5' 2) 05/11/2022 9:01 AM ANESTHESIOLOGIST PHYSICIAN Body Mass Index 26.16 05/11/2022 9:01 AM ANESTHESIOLOGIST PHYSICIAN Plan of Treatment Health Maintenance Due Date Last Done Comments Hepatitis C Virus (HCV) Screening 1977 Hepatitis B Immunization (1 of 3 - 19+ 3-dose series) 1996 Cologuard 2022 Colonoscopy 2022 Colorectal Cancer Screening 2022 Immunochemical Fecal Occult Blood 2022 Mammogram 01/17/2023 01/17/2022, 08/24/2020 Influenza Immunization (#1) 2024 SARS-COV-2 Immunization (2 - season) 2024 10/16/2020 Pap Smear 01/28/2025 01/28/2022, 12/03/2018 Cervical Cancer Screening (CCS) 03/02/2027 HPV/Cotest 03/02/2027 03/02/2022 Td Immunization Every 10 Yea rs (Adults With 1 Tdap) 12/13/2031 12/12/2021 Respiratory Syncytial Virus (RSV) Immunization (Adult) (1 - 1-dose 75+ series) 2052 Pneumococcal Immunization Combined Completed 01/12/2022, 08/10/2020 Discussion re Starting/Frequency of Mammograms Completed 01/17/2022, 08/24/2020 Human Papillomavirus (HPV) Immunization Aged Out No longer eligible b ased on patient's age to complete this topic Meningococcal Immunization (ACWY) Aged Out No longer eligible b ased on patient's age to complete this topic Rotavirus Immunization Aged Out No lo nger eligible based on patient's age to complete this topic Procedures Procedure Name Priority Date/Time Associated Diagnosis Comments HUMAN PAPILLOMA VIRUS (HPV) Routine 03/02/2022 8:33 AM ANESTHESIOLOGIST PHYSICIAN Encounter for well woman exam with routine gynecological exam PATHOLOGY CYTOLOGY REVENUE ACCOUNTANT Routine 01/28/2022 5:08 PM ANESTHESIOLOGIST PHYSICIAN Encounter for well woman exam with routine gynecological exam KATERIN SCREENING BILATERAL DIGITAL W CAD W TIGRE Routine 01/17/2022 3:30 PM ANESTHESIOLOGIST PHYSICIAN Encounter for screening for malignant neoplasm of breast, unspecified screening modality from Last 3 Months or Most Recently Relevant to Health Maintenance Results * (ABNORMAL) HUMAN PAPILLOMA VIRUS (HPV) (03/02/2022 8:33 AM ANESTHESIOLOGIST PHYSICIAN) HPV OTHER HIGH RISK TYPES, PCR POSITIVE(A) NEGATIVE 03/04/2022 2:46 PM ANESTHESIOLOGIST PHYSICIAN [facility] Comment: Positive for one or more of the following Other High HPV types: 31, 33, 35, 39, 45, 51, 52, 56, 58, 59, 66, and 68. False-positive results have been reported with molecular assays. If these positive results are discordant with clinical/cytohistologic findings, repeat testing may be considered after an appropriate interval. HPV TYPE 16 NEGATIVE NEGATIVE 03/04/2022 2:46 PM ANESTHESIOLOGIST PHYSICIAN [facility] Comment: A negative high-risk HPV result does [...] TYPE 18 NEGATIVE NEGATIVE 03/04/2022 2:46 PM ANESTHESIOLOGIST PHYSICIAN [facility] Comment: A negative high-risk HPV result does [...] SCREENING OR DIAGNOSTIC SCREENING 03/04/2022 2:46 PM ANESTHESIOLOGIST PHYSICIAN [facility] Other Non-Phlebotomy Collection / Unknown 03/02/2022 8:33 AM ANESTHESIOLOGIST PHYSICIAN 03/02/2022 8:33 AM ANESTHESIOLOGIST PHYSICIAN Narrative [facility] - 03/04/2022 2:46 PM ANESTHESIOLOGIST PHYSICIAN Performed by Real-Time Polymerase Chain Reaction (PCR) on the [employer] 4800. This assay has been validated for use with post-aliquot samples from the [employer] T5000 processor. us Mirlande Jacome APRN, PAROLE DIRECTOR LAB SEND OUTS Final Re sult [facility] [address] [place] [address], [place] * PATHOLOGY CYTOLOGY REVENUE ACCOUNTANT (01/28/2022 5:08 PM ANESTHESIOLOGIST PHYSICIAN) SPECIMEN ADEQUACY Satisfactory for evaluation. Endocervical/trans formation zone component is present. 02/08/2022 10:44 AM ANESTHESIOLOGIST PHYSICIAN [facility] GENERAL CATEGORY EPITHELIAL CELL ABNORMALITY. 02/08/2022 10:44 AM ANESTHESIOLOGIST PHYSICIAN [facility] DESCRIPTIVE DIAGNOSIS ASCUS: Atypical squamous cells of undetermined significance. 02/08/2022 10:44 AM [facility] at [address] ANESTHESIOLOGIST PHYSICIAN OTHER FINDINGS Predominance of coccobacilli present consistent with shift in vaginal jackie. 02/08/2022 10:44 AM [facility] RECOMMENDATION 02/08/2022 10:44 AM [facility] Comment:Clinical correlation and follow-up studies if warranted advised. HPV Reflex if ASCUS? Yes 02/08/2022 10:44 AM [facility] Automated Examination This sample was not evaluated by the automated imaging and review system ([employer]in[employer] Imaging System, [employer], [place], [place]) due to technical and/or biologic factor(s). The case was screened, reviewed, and finalized by a rayon coner and/or pathologist. 02/08/2022 10:44 AM ANESTHESIOLOGIST PHYSICIAN [facility] Disclaimer The PAP smear is a screening [...] recommended every three years for women 21-29, Co-Testing, a PAP test in conjunction with an HPV (Human Papillomavirus) test for women ages 30-65, and no PAP or HPV testing for women under the age of 21 or older than 65 unless clinically indicated. 02/08/2022 10:44 AM ANESTHESIOLOGIST PHYSICIAN [facility] Other CERVIX UTERI STRUCTURE / Unknown Non-Phlebotomy Collection / Unknown 01/28/2022 5:08 PM ANESTHESIOLOGIST PHYSICIAN 01/28/2022 5:08 PM ANESTHESIOLOGIST PHYSICIAN us Mirlande Jacome APRN, CNP PATHOLOGY/CYTOLOGY ORDER MARGARITO Final Result [facility] [address] [place] [address], [place] * KATERIN SCREENING BILATERAL DIGITAL W CAD W TIGRE (01/17/2022 3:30 PM ANESTHESIOLOGIST PHYSICIAN) Anatomical Region Laterality Modality breast Bilateral Mammography 01/17/2022 3:11 PM ANESTHESIOLOGIST PHYSICIAN Narrative 01/18/2022 8:47 AM ANESTHESIOLOGIST PHYSICIAN - KATERIN SCREENING BILATERAL DIGITAL W CAD [...] Comparison is made to exam dated: 08/24/2020 [facility]. BREAST TISSUE:The tissue of both breasts is [...] next screening exam. Electronically signed by: Janet skinner/cee:01/17/2022 18:28:56 Hat Mender(s): RT Jacob(R)(M), [facility] letter sent: Normal Exam Reading location: [facility] BI-RADS: 2 Benign Procedure Note Janet Martinez [...] Comparison is made to exam dated: 08/24/2020 [facility]. BREAST TISSUE:The tissue of both breasts is [...] her next screening exam. Electronically signed by: Jante skinner/cee:01/17/2022 18:28:56 Hat Mender(s): RT Jacob(R)(M), [facility] letter sent: Normal Exam Reading location: [facility] BI-RADS: 2 Benign us Mirlande Jacome NURSE UNIT MANAGER, PAROLE DIRECTOR IMG MAMMO ORDERABLES Fin al Result from Last 3 Months or Most Recently Relevant to Health Maintenance Insurance [place]
--- OUTSIDE RECORDS SUMMARY | 2024-12-09 15:19 | XMS_ITS ---
Author Organization [facility] Address [address] [place] [address] Phone Care Team Providers Care Critical Care Unit Nurse Name Role Phone Unavailable Primary Care Provider [facility] Status:Enrolled (Active) Start date:04/03/2024 Enrollment date:04/03/2024 Related social drivers of health:Intimate Partner Violence, Social Connections, Alcohol Use, Tobacco Use, Financial Resource Strain,Stress, Physical Activity, Food Insecurity, Transportation Needs, Housing Stability, Utilities Continued Care and Services Coordination
--- OUTSIDE RECORDS SUMMARY | 2024-12-09 15:19 | XMS_ITS | Clinical Summary ---
Author Organization [facility] Address [address] [place] [address] Care Team Providers Care Physicist Acoustics Name Role Phone Unavailable Primary Care Provider Unavailabl e Source Comments [facility],non-owned Affiliates and Associated Physician Practices is amultiple site organization consisting of ambulatory clinics and hospital sitesin [place], [place], [place] and [place]. This disclosure is being madepursuant to the Care Everywhere program and may not contain all information available regarding this patient. Last updated [employer] [facility] Allergies No known active allergies Medications * [...] on file Legal Sex Female 9:56 AM HEALTH INFORMATION CLERK Gender Identity Not on file Sexual Orientation Not on file Last Filed Vital Signs Vital Sign Reading Time Taken Comments Blood Pressure 110/68 05/09/2018 5:13 PM HEALTH INFORMATION CLERK Pulse 80 05/09/2018 5:13 PM HEALTH INFORMATION CLERK Temperature 36.8 C (98.3 F) 05/09/2018 5:13 PM HEALTH INFORMATION CLERK Respiratory Rate - - Oxygen Saturation 97% 05/09/2018 5:13 PM HEALTH INFORMATION CLERK Inhaled Oxygen Concentration - - Weight 54.4 kg (120 lb) 05/09/2018 5:13 PM HEALTH INFORMATION CLERK Height 157.5 cm (5' 2) 05/09/2018 5:13 PM HEALTH INFORMATION CLERK Body Mass Index 21.95 05/09/2018 5:13 PM HEALTH INFORMATION CLERK Plan of Treatment Health Maintenance Due Date [...] of 3 - 19+ 3-dose series) 1996 DEPRESSION SCREENING 03/06/2024 COVID-19 VACCINE (2023-2 5 season) 2024 INFLUENZA VACCINE (#1) 2024 ZOSTER VACCINE (1 of 2) 2027 [...] patient's age to complete this topic Insurance [facility]
--- OUTSIDE RECORDS SUMMARY | 2024-12-09 15:19 | XMS_ITS | Encounter Summary ---
Author Organization [facility] Address [address] [facility] [place] [address] Care Team Providers Care Heel Cover Splitter Name Role Phone Unavailable Primary Care Provider Unavailabl e Encounter Details Date Type Department Care Team (Late st Contact Info) Description 09/18/2019 Lab Requisition [facility] [address] [place] [address] Regis Esteves MD Social History Tobacco Use Types Packs/Day Years Used Date Smoking Tobacco: Every Day Smokeless Tobacco: Never Comments No Sex and Gender Information Value Date Recorded Sex Assigned at Not on file Legal Sex Female 9:56 AM JEWEL HOLE GAUGER Gender Identity Not on file Sexual Orientation [...] Not detected, Invalid 09/18/2019 11:06 PM CDT [facility] Microbiology SPECIMEN FROM NASOPHARYNGEAL STRUCTURE / Unknown Collection / Unknown 09/17/2019 11:45 AM CDT 09/18/2019 10:26 AM CDT Narrative [facility] - 09/18/2019 11:06 PM CDT This nucleic acid amplification assay performance was validated by [facility]. This test has been authorized [...] LAB - MICROBIOLOGY ORDERABL ES Final Result [facility] [address] [place] [address], [facility] [phone] documented in this encounter Visit Diagnoses Not on filedocumented in this encounter Additional Health Concerns Infection Onset Date Last Indicated Resolved Time COVID-19 Under Investigation 09/18/2019 09/17/2019 09/18/2019 11:06 PM CDT documented as of this encounter
== END 2024-12-09 15:18 | disposition home or self-care (01) ==
PROVIDERS: Emergency Provider Nurse Practitioner
DX: M72.2 Plantar fascial fibromatosis (principal); F17.210 Nicotine dependence, cigarettes, uncomplicated
CPT/HCPCS: 99213; G0463